=== PATIENT | female | born 1995 | race Caucasian/White ===

== ENCOUNTER 2023-06-30 21:03 | Inpatient (IN) | payer OTHER ==
[2023-06-30] MEDS ORDERED: Methylergonovine 0.2 MG/1 ML Amp IM PRN (21:42)
[2023-06-30] MEDS ORDERED: Lidocaine 1% 50 ML MDV INJECT PRN (21:42)
[2023-06-30] MEDS ORDERED: Tranexamic Acid 1,000 MG in Sodium Chloride 0.9% 100 ML IV PRN (21:42)
[2023-06-30] MEDS ORDERED: Carboprost Tromethamine 250 MCG/1 mL Vial IM PRN (21:42)
[2023-06-30] MEDS ORDERED: Sodium Chloride 0.9% 2.5 ML Syringe FLUSH PRN (21:42)
[2023-06-30] MEDS ORDERED: Terbutaline 1 MG/ML SDV SUBCUT PRN (21:42)
[2023-06-30] MEDS ORDERED: Sodium Chloride 0.9% 10 ML Syringe FLUSH PRN (21:42)
[2023-06-30] MEDS ORDERED: Sodium Chloride 0.9% 20 ML SDV IV PRN (21:42)
[2023-06-30] MEDS ORDERED: Butorphanol 1 MG/ML SDV IVPUSH PRN (21:42)
[2023-06-30] MEDS ORDERED: Misoprostol 200 MCG Tab PO PRN (21:42)
[2023-06-30] MEDS ORDERED: Water For Irrigation,Sterile 1,000 ML Container IRR PRN (21:42)
[2023-06-30] MEDS ORDERED: Oxytocin/0.9 % Sodium Chloride 30 UNIT/500 ML BAG IV SCH ×2 (21:45)
[2023-06-30] MEDS ORDERED: Nalbuphine HCl 10 MG/ 1ML Amp IVPUSH PRN (21:55)
[2023-06-30] MEDS ORDERED: Misoprostol 25 MCG (1/4 of 100 MCG) Tab VAG PRN (22:00)
[2023-06-30] MEDS ORDERED: Misoprostol 25 MCG (1/4 of 100 MCG) Tab PO PRN (22:00)
[2023-06-30 22:32] LABS: HEMOGLOBIN 12.8 g/dL (12.0-16.0); MEAN CORPUSCULAR HEMOGLOBIN 29.1 pg (27.0-32.0); MEAN CORPUSCULAR HGB CONC 34.6 g/dL (31.0-37.0); MEAN CORPUSCULAR VOLUME 84.1 fL (80.0-98.0); MEAN PLATELET VOLUME 9.8 fL (7.40-12.00); RED BLOOD CELL COUNT 4.4 M/uL (4.30-5.90); WHITE BLOOD CELL COUNT,WBC 8.74 K/uL (4.0-11.0)
[2023-07-01] MEDS ORDERED: Misoprostol 25 MCG (1/4 of 100 MCG) Tab VAG PRN (02:00)
[2023-07-01] MEDS ORDERED: Misoprostol 25 MCG (1/4 of 100 MCG) Tab PO PRN (02:00)
[2023-07-01] MEDS: Lactated Ringers 1,000 ML IV SCH ×2 (03:58→11:02)
[2023-07-01] MEDS: Ondansetron 4 MG/2 ML SDV IVPUSH PRN ×2 (08:08→22:37)
[2023-07-01] MEDS ORDERED: Phenylephrine HCl 0.5 MG/5 ML AMP IVPUSH PRN (11:10)
[2023-07-01] MEDS ORDERED: ePHEDrine 50 MG/ML SDV IVPUSH PRN ×2 (11:10)
[2023-07-01] MEDS ORDERED: Ropivacaine HCl/PF 400 MG in Premix Bag 1 BAG EPIDUR SCH (11:15)
[2023-07-01] MEDS ORDERED: Ropivacaine/PF 400 MG/200 ML PCA ONE (11:16)
[2023-07-01] MEDS ORDERED: Dexmedetomidine 200 MCG/2 ML SDV ONE (11:16)
[2023-07-01] MEDS ORDERED: Labetalol 100 MG/20 ML MDV IVPUSH ONE (16:33)
[2023-07-01] MEDS ORDERED: Labetalol 100 MG Tab PO ONE (16:34)
[2023-07-01] MEDS ORDERED: Bisacodyl 10 MG Supp RECTAL PRN (19:59)
[2023-07-01] MEDS ORDERED: Benzocaine/Menthol 20%-0.5% Spray 78 GM Cannister TOP PRN (19:59)
[2023-07-01] MEDS ORDERED: Witch Hazel Medicated Pads 40/Jar TOP PRN (19:59)
[2023-07-01] MEDS ORDERED: Ibuprofen 400 MG Tab PO PRN (19:59)
[2023-07-01] MEDS ORDERED: Lanolin 100% Cream 7 GM Tube TOP PRN (19:59)
[2023-07-01] MEDS ORDERED: Acetaminophen 500 MG Tab PO PRN ×2 (19:59)
[2023-07-01] MEDS ORDERED: Docusate Sodium 100 MG Cap PO PRN (19:59)
[2023-07-02 02:26] LABS: PH,UMBILICAL VENOUS 7.085 (7.25-7.45)
[2023-07-02 06:35] LABS: HEMATOCRIT 28.4 % (36.0-46.0); HEMOGLOBIN 9.6 g/dL (12.0-16.0)
[2023-07-02] MEDS: Ibuprofen 800 MG Tab PO PRN ×2 (11:08→17:44)
== END 2023-07-02 20:50 | disposition home or self-care (01) | DRG 807 ==
LOC: MW.OB 21:03 → OBSVTOIN 07-01 21:16 → MW.OB 07-02 00:30
PROVIDERS: ADMIT Obstetrics & Gynecology Obstetrics; ATTEND Obstetrics & Gynecology Obstetrics
PROC: 10D07Z6 Extraction of Products of Conception, Vacuum, Via Natural or Artificial Opening (ICD-10-PCS; principal; 2023-07-01)
PROC: 3E0P7VZ Introduction of Hormone into Female Reproductive, Via Natural or Artificial Opening (ICD-10-PCS; 2023-07-01)
PROC: 3E0R3BZ Introduction of Anesthetic Agent into Spinal Canal, Percutaneous Approach (ICD-10-PCS; 2023-07-01)
PROC: 00HU33Z Insertion of Infusion Device into Spinal Canal, Percutaneous Approach (ICD-10-PCS; 2023-07-01)
DX: O48.0 Post-term pregnancy (principal); Z37.0 Single live birth; Z3A.40 40 weeks gestation of pregnancy; O77.0 Labor and delivery complicated by meconium in amniotic fluid
CPT/HCPCS: 01967; 36415; 51702; 59025; 59409; 82803; 85014; 85018; 85027; 86592; 86850; 86900; 86901; A9270-GY; J2405; J2590; J2795; J3490; J7120